=== PATIENT | male | born 1960 | race Caucasian/White ===

== ENCOUNTER 2019-03-24 20:46 | Emergency (ER) | payer BC, SELFPAY ==
[2019-03-24 21:01] VITALS: BP 156/101; PULSE 75; RESP 20; TEMP 36.3; O2SAT 99; BMI 25.1
--- NOTE | 2019-03-24 21:07 | XR_ITS ---
XR finger LT min 2V CLINICAL INDICATION: Posttraumatic pain, laceration injury and pain ITS.REASON: laceration ORDERING PHYSICIAN: Asher Berman MD PATIENT AGE: 58 years Comparison: None FINDINGS: No fracture or dislocation or other significant anomalies. IMPRESSION: No acute findings
--- NOTE | 2019-03-24 21:50 | [facility].EDWNDL ---
ED Disposition Clinical Impression: Laceration Disposition: Home, Self-Care Condition on Discharge: Good Instructions: DI for Laceration Repair Prescriptions: cephALEXin [Keflex 500mg Cap] 1,000 mg PO BID 5 Days #20 cap Referrals: Cooper Summers MD [Primary Care Provider] - Time of Disposition: 21:55 - Critical Care Critical Care Time: No Attestation: On 03/24/19, the high probability of a clinically significant, sudden or life threatening deterioration of the following system(s) required my full and direct attention, intervention and personal management. The time I documented below is in addition to time spent performing reported procedures but includes the following listed in this critical care notation. Medical Decision Making - Medical Records Medical records reviewed: Yes: I reviewed the patient's medical records. - South Inquiry Pt receiving controlled substance: No South was queried for this patient: No Vital Signs: 03/24/19 21:01 Temperature 97.4 F L Temperature Source Oral Pulse Rate [Right] 75 Respiratory Rate 20 Blood Pressure [Right Arm] 156/101 H Blood Pressure Mean [Right Arm] 119 Blood Pressure Source [Right Arm] Automatic Cuff Blood Pressure Position [Right Arm] Supine 02 Sat by Pulse Oximetry 99 Oxygen Delivery Method Room Air - Lab Data Lab results reviewed: Yes: I reviewed the patient's lab results. Orders (Tests/Meds): ED MEDICATIONS Discontinued Medications Generic Name Dose Route Start Last Admin Trade Name Freq PRN Reason Stop Dose Admin Lidocaine HCl 15 ml 03/24/19 21:08 Lidocaine 1% 20ml Mdv SQ 03/24/19 21:09 ONCE ONE ORDERS Category Date Time Status Finger XR left minimum 2 views [XR finger LT min 2V] Exams 03/24/19 21:07 Taken Stat Wound/Laceration HPI - General Chief Complaint: Wound/Laceration Stated Complaint: ao 0601 lAC L MIDDLE FINGER Time Seen by Provider: 03/24/19 21:15 Mode of Arrival: Ambulatory Source of Information: Patient Limitations: No Limitations Description of Symptoms (Recalled from ER Triage Doc. by RN): Pt has Lac to left middle finger at the first joint from table saw - History of Present Illness HPI narrative: tablesaw injury to left long finger, volar aspect, dip joint. preservation of range of motion of this joint is noted - Related Data Home Medications Medication Instructions Recorded Confirmed moexipril 7.5 1 tab PO DAILY tab 04/06/18 mg-hydrochlorothiazide 12.5 mg tablet Previous Rx's Medication Instructions Recorded cephALEXin [Keflex 500mg Cap] 1,000 mg PO BID 5 Days #20 cap 03/24/19 Allergies Allergy/AdvReac Type Severity Reaction Status Date / Time INGREDIENT: NO KNOWN - NO Allergy Unknown Uncoded 04/06/18 08:49 KNOWN DRUG ALLERGY [facility] History - Hepatitis A Screen Drug use history?: No High risk sexual behaviors?: No History of sexually transmitted infection?: No Currently employed?: No Childcare worker?: No Do you have indoor plumbing?: Yes Do you have electricity?: Yes Attestation statement:: This patient has been screened for Hepatitis A risk factors. I have reviewed the patient's past medical history: Yes Medical History: Reports:: Hypertension Denies:: Diabetes Mellitus Type 1, Diabetes Mellitus Type 2 Other Surgeries: Yes: Hernia Repair Amputation: No Fractures: No Comment: Rt Rotator cuff - Social History Smoking Status: Never smoker Alcohol Intake: never Substance Use Type: denies use Occupational Status: employed - Psychiatric History Expresses thoughts of harming self/others: None Suicide Plan Description: No Plan Family Hx:: Cancer ROS Obtained: Yes All systems reviewed & no additional complaints - Constitutional Constitutional: Denies fever(s) - Cardiovascular Cardiovascular: Denies chest pain - Respiratory Respiratory: No dyspnea - Musculoskeletal Musculoskeletal: Denies joint stiffness, Maurice
--- NOTE | 2019-03-24 21:53 | ED_ITS ---
ED Disposition Clinical Impression: Laceration Disposition: Home, Self-Care Condition on Discharge: Good Instructions: DI for Laceration Repair Prescriptions: cephALEXin [Keflex 500mg Cap] 1,000 mg PO BID 5 Days #20 cap Referrals: Cooper Summers MD [Primary Care Provider] - Time of Disposition: 21:55 - Critical Care Critical Care Time: No Attestation: On 03/24/19, the high probability of a clinically significant, sudden or life threatening deterioration of the following system(s) required my full and direct attention, intervention and personal management. The time I documented below is in addition to time spent performing reported procedures but includes the following listed in this critical care notation. Medical Decision Making - Medical Records Medical records reviewed: Yes: I reviewed the patient's medical records. - South Inquiry Pt receiving controlled substance: No South was queried for this patient: No Vital Signs: 03/24/19 21:01 Temperature 97.4 F L Temperature Source Oral Pulse Rate [Right] 75 Respiratory Rate 20 Blood Pressure [Right Arm] 156/101 H Blood Pressure Mean [Right Arm] 119 Blood Pressure Source [Right Arm] Automatic Cuff Blood Pressure Position [Right Arm] Supine 02 Sat by Pulse Oximetry 99 Oxygen Delivery Method Room Air - Lab Data Lab results reviewed: Yes: I reviewed the patient's lab results. Orders (Tests/Meds): ED MEDICATIONS Discontinued Medications Generic Name Dose Route Start Last Admin Trade Name Freq PRN Reason Stop Dose Admin Lidocaine HCl 15 ml 03/24/19 21:08 Lidocaine 1% 20ml Mdv SQ 03/24/19 21:09 ONCE ONE ORDERS Category Date Time Status Finger XR left minimum 2 views [XR finger LT min 2V] Exams 03/24/19 21:07 Taken Stat Wound/Laceration HPI - General Chief Complaint: Wound/Laceration Stated Complaint: ao 0601 lAC L MIDDLE FINGER Time Seen by Provider: 03/24/19 21:15 Mode of Arrival: Ambulatory Source of Information: Patient Limitations: No Limitations Description of Symptoms (Recalled from ER Triage Doc. by RN): Pt has Lac to left middle finger at the first joint from table saw - History of Present Illness HPI narrative: tablesaw injury to left long finger, volar aspect, dip joint. preservation of range of motion of this joint is noted - Related Data Home Medications Medication Instructions Recorded Confirmed moexipril 7.5 1 tab PO DAILY tab 04/06/18 mg-hydrochlorothiazide 12.5 mg tablet Previous Rx's Medication Instructions Recorded cephALEXin [Keflex 500mg Cap] 1,000 mg PO BID 5 Days #20 cap 03/24/19 Allergies Allergy/AdvReac Type Severity Reaction Status Date / Time INGREDIENT: NO KNOWN - NO Allergy Unknown Uncoded 04/06/18 08:[address] [facility] History - Hepatitis A Screen Drug use history?: No High risk sexual behaviors?: No History of sexually transmitted infection?: No Currently employed?: No C
--- NOTE | 2019-03-24 22:07 | PC.NURSE ---
Wound cleansed with hibiclens and saline, wrapped in gauze/kerlix and finger splint applied.
[2019-03-24 22:12] VITALS: BP 149/89; PULSE 79; RESP 16; TEMP 36.8; O2SAT 98
== END 2019-03-24 22:12 | disposition home or self-care (01) ==
LOC: UTC 20:50 → ER 20:56
PROVIDERS: Emergency Provider Emergency Medicine; PCP Family Medicine
DX: S61.213A Laceration without foreign body of left middle finger without damage to nail, initial encounter (principal); W31.2XXA Contact with powered woodworking and forming machines, initial encounter; Z23 Encounter for immunization; I10 Essential (primary) hypertension
CPT/HCPCS: 12001; 73140; 90471; 90714; 96372; 99282

== ENCOUNTER → 2021-11-13 10:47 | Outpatient (CLI) | payer BC, SELFPAY ==
--- NOTE | 2021-11-13 | US_ITS ---
FINAL REPORT TECHNIQUE: Ultrasound images of the testicles were obtained bilaterally. Color Doppler images were obtained. CLINICAL HISTORY: possible mass ; patient states that he see's vessels on left side of scrotum after showering FINDINGS: The right testicle measures 3.5 cm in length. The left testicle measures 3.5 cm in length. Arterial flow is identified bilaterally. No intratesticular masses are identified. There is a left varicocele. There is a possible smaller right varicocele. IMPRESSION: Left varicocele with possible smaller right varicocele. Follow-up ultrasound may be helpful. Reviewed, Interpreted and Dictated by James Valdivia III, MD Transcribed by Carmencita Farooq Authenticated by James Valdivia III, MD on 11/13/2021 01:05:11 PM [facility] [place]
== END ==
PROVIDERS: PCP Family Medicine; Visit Provider Family Medicine
DX: D29.22 Benign neoplasm of left testis (principal)
CPT/HCPCS: 76870

== ENCOUNTER → 2022-06-01 18:26 | Outpatient (CLI) | payer BC, SELFPAY ==
[2022-06-01 15:41] LABS: Basophils # 0.1 K/mm3 (0-0.2); Basophils % 1.1 % (0.1-2.0); Eosinophils # 0.1 K/mm3 (0.0-0.4); Eosinophils % 1.6 % (0.1-12.0); Hematocrit 50.1 % (42.0-52.0); Lymphocytes % 25.5 % (10-50); Mean Corpuscular HGB Conc 31.8 g/dL (31.8-35.4); Mean Corpuscular Volume 97.4 fl (80-94); Mean Platelet Volume 9.2 fl (7.4-10.4); Monocytes # 0.7 K/mm3 (0.1-1.0); Monocytes % 8.2 % (1.7-9.3); Neutrophils # 5.1 K/mm3 (1.8-7.8); Neutrophils % 63.6 % (37.0-80.0); Platelet Count 301 K/mm3 (142-424); Red Blood Count 5.15 M/mm3 (4.60-6.20); Red Cell Distribution Width 13.6 % (11.5-17.5)
[2022-06-01 16:00] LABS: Chloride 105 mmol/L (98-107)
[2022-06-01 16:01] LABS: Potassium 4.3 mmoL/L (3.5-5.1); Sodium 138 mmol/L (136-145)
[2022-06-01 16:03] LABS: Alkaline Phosphatase 116 U/L (38-126); Anion Gap 10.3 mEq/L (5-15); Bilirubin,Total 0.5 mg/dl (0.2-1.3); Carbon Dioxide 27 mmol/L (22.0-30.0)
[2022-06-01 16:04] LABS: Albumin Level 4.4 g/dl (3.5-5.0); Albumin/Globulin Ratio 1.5 (1.1-1.8); HDL Cholesterol 45 mg/dl (40-60); Total Protein,Serum 7.4 g/dl (6.3-8.2)
[2022-06-01 16:05] LABS: Alanine Aminotransferase 23 U/L (12-78); Aspartate Amino Transferase 31 U/L (17-59); Blood Urea Nitrogen 17 mg/dl (9-20); Calcium 9.9 mg/dl (8.4-10.2); Chol/HDL Ratio 4.6 (1-3.5); Cholesterol 207 mg/dl (140-200); Estimated Glomerular Filt Rate 68 ml/min (>60); GFR (African American) 82 ML/MIN (>60); Glucose 123 mg/dl (74-100); Triglycerides 136 mg/dl (30-150)
[2022-06-01 16:09] LABS: 25-OH Vitamin D, Total 59.3 ng/mL (30-100)
[2022-06-01 16:28] LABS: Thyroid Stimulating Hormone 2.97 uIU/mL (0.465-4.68)
[2022-06-02 11:03] LABS: Hemoglobin A1C 5.8 % (4.0-6.0)
[2022-06-02 16:46] LABS: Prostate Specific Ag Screen 0.4 ng/ml (0.0-4.0)
[2022-06-03 11:32] LABS: Direct LDL Cholesterol 130 mg/dL (100-129); VLDL Cholesterol 27 mg/dL (0-40)
== END ==
PROVIDERS: PCP Physician Assistant; Visit Provider Physician Assistant
DX: Z00.00 Encounter for general adult medical examination without abnormal findings (principal); R73.09 Other abnormal glucose; Z12.5 Encounter for screening for malignant neoplasm of prostate
CPT/HCPCS: 80053; 80061; 82306; 83036; 84443; 85025; G0103

== ENCOUNTER → 2023-09-01 12:00 | Outpatient (CLI) | payer BC, SELFPAY ==
[2023-09-01 21:47] LABS: Basophils # 0.1 K/mm3 (0-0.2); Basophils % 0.7 % (0.1-2.0); Eosinophils # 0.1 K/mm3 (0.0-0.4); Hematocrit 50.8 % (42.0-52.0); Hemoglobin 17.2 g/dL (14.1-18.0); Lymphocytes # 1.7 K/mm3 (0.7-4.5); Lymphocytes % 25.2 % (10-50); Mean Corpuscular HGB Conc 33.9 g/dL (31.8-35.4); Mean Corpuscular Hemoglobin 32.5 pg (27.0-31.2); Mean Platelet Volume 9.3 fl (7.4-10.4); Monocytes # 0.5 K/mm3 (0.1-1.0); Monocytes % 7.5 % (1.7-9.3); Neutrophils # 4.4 K/mm3 (1.8-7.8); Neutrophils % 65.5 % (37.0-80.0); Platelet Count 300 K/mm3 (142-424); Red Cell Distribution Width 13.1 % (11.5-17.5); White Blood Count 6.7 K/mm3 (4.8-10.8)
[2023-09-01 22:02] LABS: Alanine Aminotransferase 29 U/L (12-78); Albumin Level 4.6 g/dl (3.5-5.0); Albumin/Globulin Ratio 1.4 (1.1-1.8); Alkaline Phosphatase 101 U/L (38-126); Anion Gap 17.5 mEq/L (5-15); Aspartate Amino Transferase 34 U/L (17-59); Bilirubin,Total 0.6 mg/dl (0.2-1.3); Blood Urea Nitrogen 18 mg/dl (9-20); Calcium 9.7 mg/dl (8.4-10.2); Carbon Dioxide 26 mmol/L (22.0-30.0); Chloride 99 mmol/L (98-107); Cholesterol 212 mg/dl (140-200); Estimated Glomerular Filt Rate 56 ml/min (>60); GFR (African American) 67 ML/MIN (>60); Globulin 3.2 g/dL (1.3-3.2); Glucose 99 mg/dl (74-100); HDL Cholesterol 42 mg/dl (40-60); Potassium 4.5 mmoL/L (3.5-5.1); Sodium 138 mmol/L (136-145); Total Protein,Serum 7.8 g/dl (6.3-8.2); Triglycerides 101 mg/dl (30-150); VLDL Cholesterol 20 mg/dL (0-40)
[2023-09-01 22:12] LABS: Direct LDL Cholesterol 133.93 mg/dL (100-129)
[2023-09-01 22:18] LABS: 25-OH Vitamin D, Total 40.8 ng/mL (30-100)
[2023-09-01 22:29] LABS: Prostate Specific Ag Screen 0.5 ng/ml (0.0-4.0); Thyroid Stimulating Hormone 2.47 uIU/mL (0.465-4.68)
== END ==
PROVIDERS: PCP Physician Assistant; Visit Provider Physician Assistant
DX: I10 Essential (primary) hypertension (principal); Z79.899 Other long term (current) drug therapy; Z12.5 Encounter for screening for malignant neoplasm of prostate
CPT/HCPCS: 80053; 80061; 82306; 84443; 85025; G0103

== ENCOUNTER → 2023-09-14 13:34 | Outpatient (CLI) | payer BC, SELFPAY ==
[2023-09-14 14:07] LABS: Alanine Aminotransferase 50 U/L (12-78); Alkaline Phosphatase 128 U/L (38-126); Aspartate Amino Transferase 50 U/L (17-59); Bilirubin,Total 0.7 mg/dl (0.2-1.3); Blood Urea Nitrogen 20 mg/dl (9-20); Carbon Dioxide 27 mmol/L (22.0-30.0); Chloride 100 mmol/L (98-107); Estimated Glomerular Filt Rate 56 ml/min (>60); GFR (African American) 67 ML/MIN (>60)
[2023-09-14 14:08] LABS: Albumin Level 4.5 g/dl (3.5-5.0); Albumin/Globulin Ratio 1.4 (1.1-1.8); Anion Gap 12.3 mEq/L (5-15); Calcium 9.4 mg/dl (8.4-10.2); Globulin 3.3 g/dL (1.3-3.2); Glucose 107 mg/dl (74-100); Potassium 4.3 mmoL/L (3.5-5.1); Sodium 135 mmol/L (136-145); Total Protein,Serum 7.8 g/dl (6.3-8.2)
== END ==
PROVIDERS: PCP Physician Assistant; Visit Provider Physician Assistant
DX: R35.0 Frequency of micturition (principal); R79.89 Other specified abnormal findings of blood chemistry; B96.89 Other specified bacterial agents as the cause of diseases classified elsewhere
CPT/HCPCS: 80053; 87086

== ENCOUNTER → 2023-10-12 23:08 | Outpatient (CLI) | payer BC, SELFPAY ==
[2023-10-12 18:45] LABS: Chloride 102 mmol/L (98-107); Potassium 4.7 mmoL/L (3.5-5.1); Sodium 138 mmol/L (136-145)
[2023-10-12 18:48] LABS: Anion Gap 12.7 mEq/L (5-15); Blood Urea Nitrogen 23 mg/dl (9-20); Carbon Dioxide 28 mmol/L (22.0-30.0); Estimated Glomerular Filt Rate 51 ml/min (>60); GFR (African American) 62 ML/MIN (>60)
[2023-10-12 18:49] LABS: Calcium 9.3 mg/dl (8.4-10.2); Glucose 112 mg/dl (74-100)
== END ==
PROVIDERS: PCP Physician Assistant; Visit Provider Physician Assistant
DX: I10 Essential (primary) hypertension (principal)
CPT/HCPCS: 80048

== ENCOUNTER 2023-12-05 13:33 | Outpatient (CLI) | payer BC, SELFPAY ==
[2023-12-05 13:48] LABS: Basophils % 0.5 % (0.1-2.0); Eosinophils # 0.1 K/mm3 (0.0-0.4); Eosinophils % 1.1 % (0.1-12.0); Hematocrit 50.4 % (42.0-52.0); Hemoglobin 17.1 g/dL (14.1-18.0); Lymphocytes # 2.1 K/mm3 (0.7-4.5); Lymphocytes % 26.6 % (10-50); Mean Corpuscular Hemoglobin 31.7 pg (27.0-31.2); Mean Corpuscular Volume 93.2 fl (80-94); Mean Platelet Volume 9.2 fl (7.4-10.4); Monocytes # 0.5 K/mm3 (0.1-1.0); Monocytes % 5.8 % (1.7-9.3); Neutrophils # 5.2 K/mm3 (1.8-7.8); Neutrophils % 65.9 % (37.0-80.0); Platelet Count 293 K/mm3 (142-424); Red Blood Count 5.41 M/mm3 (4.60-6.20); Red Cell Distribution Width 12.9 % (11.5-17.5); White Blood Count 7.8 K/mm3 (4.8-10.8)
[2023-12-05 14:33] LABS: Alanine Aminotransferase 29 U/L (12-78); Albumin Level 4.3 g/dl (3.5-5.0); Albumin/Globulin Ratio 1.4 (1.1-1.8); Alkaline Phosphatase 105 U/L (38-126); Anion Gap 11.3 mEq/L (5-15); Aspartate Amino Transferase 32 U/L (17-59); Bilirubin,Total 0.6 mg/dl (0.2-1.3); Blood Urea Nitrogen 16 mg/dl (9-20); Calcium 9.7 mg/dl (8.4-10.2); Carbon Dioxide 27 mmol/L (22.0-30.0); Chloride 105 mmol/L (98-107); Chol/HDL Ratio 5.7 (1-3.5); Cholesterol 233 mg/dl (140-200); Estimated Glomerular Filt Rate 61 ml/min (>60); GFR (African American) 74 ML/MIN (>60); Globulin 3.1 g/dL (1.3-3.2); Glucose 92 mg/dl (74-100); HDL Cholesterol 41 mg/dl (40-60); Potassium 4.3 mmoL/L (3.5-5.1); Sodium 139 mmol/L (136-145); Total Protein,Serum 7.4 g/dl (6.3-8.2); Triglycerides 116 mg/dl (30-150); VLDL Cholesterol 23 mg/dL (0-40)
[2023-12-05 14:45] LABS: Direct LDL Cholesterol 143.01 mg/dL (100-129)
[2023-12-05 14:57] LABS: 25-OH Vitamin D, Total 26.5 ng/mL (30-100)
[2023-12-05 15:04] LABS: Thyroid Stimulating Hormone 2.86 uIU/mL (0.465-4.68)
[2023-12-05 18:44] LABS: Hemoglobin A1C 5.7 % (4.0-6.0)
== END 2023-12-05 23:59 ==
LOC: LAB.DROPOF 13:33
PROVIDERS: PCP Physician Assistant; Visit Provider Physician Assistant
DX: R53.83 Other fatigue (principal); I10 Essential (primary) hypertension; E78.5 Hyperlipidemia, unspecified; N18.31 Chronic kidney disease, stage 3a; E55.9 Vitamin D deficiency, unspecified; Z79.899 Other long term (current) drug therapy
CPT/HCPCS: 80053; 80061; 82306; 83036; 84443; 85025